=== PATIENT | male | born 1960 | race Caucasian/White ===

== ENCOUNTER 2023-09-14 08:34 | Day surgery (SDC) | payer OTHER ==
[2023-09-13 15:20] VITALS: BMI 40.1
[2023-09-14 10:48] VITALS: TEMP 97.8
[2023-09-14 10:50] VITALS: BP 104/68; PULSE 87; RESP 19
== END 2023-09-14 10:50 | disposition home or self-care (01) ==
LOC: FASU-ENDO 08:34
PROVIDERS: ATTEND Internal Medicine Gastroenterology
PROC: 0DBL8ZX Excision of Transverse Colon, Via Natural or Artificial Opening Endoscopic, Diagnostic (ICD-10-PCS; 2023-09-14)
PROC: 0DBH8ZX Excision of Cecum, Via Natural or Artificial Opening Endoscopic, Diagnostic (ICD-10-PCS; 2023-09-14)
PROC: 0DBK8ZX Excision of Ascending Colon, Via Natural or Artificial Opening Endoscopic, Diagnostic (ICD-10-PCS; principal; 2023-09-14 09:42)
DX: Z12.11 Encounter for screening for malignant neoplasm of colon (principal); D12.0 Benign neoplasm of cecum; D12.2 Benign neoplasm of ascending colon; D12.3 Benign neoplasm of transverse colon; K57.30 Diverticulosis of large intestine without perforation or abscess without bleeding; Z86.010 Personal history of colon polyps; Z80.0 Family history of malignant neoplasm of digestive organs
CPT/HCPCS: 88305-TC